=== PATIENT | male | born 1955 | race African-American/Black ===

== ENCOUNTER 2016-08-27 13:07 | Emergency (ER) | payer OTHER ==
[2016-08-27 15:19] VITALS: BP 144/99
== END 2016-08-27 15:19 | disposition home or self-care (01) ==
LOC: ED 13:07
DX: M54.12 Radiculopathy, cervical region (principal); M25.511 Pain in right shoulder; M25.512 Pain in left shoulder

== ENCOUNTER 2016-09-02 18:53 | Emergency (ER) | payer OTHER ==
[2016-09-02 21:33] VITALS: BP 148/88
== END 2016-09-02 21:33 | disposition home or self-care (01) ==
LOC: ED 18:53
DX: M54.12 Radiculopathy, cervical region (principal); E78.00 Pure hypercholesterolemia, unspecified; G43.909 Migraine, unspecified, not intractable, without status migrainosus; Z79.899 Other long term (current) drug therapy
CPT/HCPCS: J1885

== ENCOUNTER 2016-09-07 11:12 | Emergency (ER) | payer OTHER ==
[2016-09-07 12:34] LABS: BASOPHIL % 0.8 % (0-2); PLATELET COUNT 215 x10^3mcL (130-400); RED CELL DISTRIBUTION WIDTH 13.9 % (11.5-14.5)
[2016-09-07 12:38] LABS: CALCIUM 8.7 mg/dL (8.5-10.1); CARBON DIOXIDE 27.5 mmol/L (21-32); CHLORIDE SERUM 105 mmol/L (98-107); CREATININE SERUM 1.1 mg/dL (0.7-1.3); GFR1 > 60 mL/min; GLUCOSE SERUM 101 mg/dL (74-106); POTASSIUM SERUM 4.4 mmol/L (3.5-5.1); SODIUM SERUM 138 mmol/L (136-145)
[2016-09-07 12:42] LABS: ALBUMIN 3.7 g/dL (3.4-5.0); ALKALINE PHOSPHATASE 60 U/L (46-116); ALT/SGPT 44 U/L (16-63); AST/SGOT 26 U/L (15-37); BILIRUBIN TOTAL 0.32 mg/dL (0.20-1.00); CHOLESTEROL 152 mg/dL (<200); CHOLESTEROL/HDL RATIO 2.9; HDL CHOLESTEROL 52 mg/dL (40-60); LIPASE 99 IU/L (73-393); TOTAL PROTEIN, SERUM 6.8 g/dL (6.4-8.2); TRIGLYCERIDES 159 mg/dL (<150)
[2016-09-07 12:48] LABS: FREE T4 1.08 ng/dL (0.76-1.46); FREE THYROXINE INDEX 3.4 ug/dL (1.4-4.5); T4(THYROXINE) 8.6 ug/dL (4.7-13.3)
[2016-09-07 13:01] LABS: T3 TOTAL 0.98 ng/mL
[2016-09-07 13:23] LABS: microscopic required? NO
[2016-09-07 13:39] LABS: UA SPECIFIC GRAVITY 1.025 (1.005-1.035); urine erythrocyte NEGATIVE (NEGATIVE)
[2016-09-07 15:28] VITALS: BP 148/85
== END 2016-09-07 15:28 | disposition home or self-care (01) ==
LOC: ED 11:12
PROVIDERS: Specialist
DX: R10.31 Right lower quadrant pain (principal); R10.32 Left lower quadrant pain; E78.00 Pure hypercholesterolemia, unspecified
CPT/HCPCS: 83880; 84439; J1885; J7030

== ENCOUNTER 2017-01-15 19:49 | Emergency (ER) | payer OTHER ==
[2017-01-15 22:17] VITALS: BP 143/79
== END 2017-01-15 22:17 | disposition home or self-care (01) ==
LOC: ED 19:49
DX: M25.561 Pain in right knee (principal); R03.0 Elevated blood-pressure reading, without diagnosis of hypertension; E78.5 Hyperlipidemia, unspecified; G43.909 Migraine, unspecified, not intractable, without status migrainosus
CPT/HCPCS: J1885

== ENCOUNTER 2017-02-10 10:45 | Emergency (ER) | payer OTHER ==
[~2017-02-10] VITALS: Ht 188 cm; Wt 103.0 kg
[2017-02-10 10:50] VITALS: BP 151/89
== END 2017-02-10 13:11 | disposition home or self-care (01) ==
LOC: ED 10:45
DX: G89.29 Other chronic pain (principal); M25.561 Pain in right knee; H61.23 Impacted cerumen, bilateral; F32.9 Major depressive disorder, single episode, unspecified; E78.00 Pure hypercholesterolemia, unspecified; G43.909 Migraine, unspecified, not intractable, without status migrainosus; M17.0 Bilateral primary osteoarthritis of knee

== ENCOUNTER 2017-03-18 21:47 | Emergency (ER) | payer OTHER ==
[2017-03-19 00:03] VITALS: BP 148/104
== END 2017-03-19 00:03 | disposition home or self-care (01) ==
LOC: ED 21:47
DX: Z76.0 Encounter for issue of repeat prescription (principal); E78.5 Hyperlipidemia, unspecified

== ENCOUNTER 2017-03-29 17:03 | Emergency (ER) | payer OTHER ==
[~2017-03-29] VITALS: Ht 188 cm; Wt 104.3 kg
[2017-03-29 20:17] VITALS: BP 139/78
== END 2017-03-29 20:18 | disposition home or self-care (01) ==
LOC: ED 17:03
DX: G89.29 Other chronic pain (principal); M25.561 Pain in right knee; E78.5 Hyperlipidemia, unspecified; R03.0 Elevated blood-pressure reading, without diagnosis of hypertension
CPT/HCPCS: J1885

== ENCOUNTER 2017-04-16 14:31 | Emergency (ER) | payer OTHER ==
[2017-04-16 16:59] VITALS: BP 155/74
== END 2017-04-16 16:30 | disposition home or self-care (01) ==
LOC: ED 14:31
DX: Z76.0 Encounter for issue of repeat prescription (principal); E78.00 Pure hypercholesterolemia, unspecified; G43.909 Migraine, unspecified, not intractable, without status migrainosus

== ENCOUNTER 2017-04-26 19:34 | Emergency (ER) | payer OTHER ==
[2017-04-26 23:27] VITALS: BP 119/80
== END 2017-04-26 23:25 | disposition home or self-care (01) ==
LOC: ED 19:34
DX: Z76.0 Encounter for issue of repeat prescription (principal); R10.13 Epigastric pain; F32.9 Major depressive disorder, single episode, unspecified; E78.00 Pure hypercholesterolemia, unspecified; G43.909 Migraine, unspecified, not intractable, without status migrainosus

== ENCOUNTER 2017-05-01 17:45 | Emergency (ER) | payer OTHER ==
[~2017-05-01] VITALS: Ht 188 cm; Wt 102.0 kg
[2017-05-01 17:49] VITALS: BP 149/63
== END 2017-05-01 18:30 | disposition home or self-care (01) ==
LOC: ED 17:45
DX: R21 Rash and other nonspecific skin eruption (principal)

== ENCOUNTER 2017-05-23 22:35 | Emergency (ER) | payer OTHER ==
[~2017-05-23] VITALS: Ht 188 cm; Wt 105.7 kg
[2017-05-23 22:45] VITALS: Ht 188 cm; Wt 105.7 kg
[2017-05-24 00:24] VITALS: BP 146/87
== END 2017-05-23 23:50 | disposition home or self-care (01) ==
LOC: ED 22:35
DX: Z76.0 Encounter for issue of repeat prescription (principal); E78.5 Hyperlipidemia, unspecified; G43.909 Migraine, unspecified, not intractable, without status migrainosus

== ENCOUNTER 2017-08-28 21:13 | Emergency (ER) | payer OTHER ==
[~2017-08-28] VITALS: Ht 182.9 cm; Wt 104.3 kg
[2017-08-28 21:19] VITALS: Ht 182.9 cm; Wt 104.3 kg
[2017-08-28 21:48] VITALS: BP 159/100
== END 2017-08-28 21:48 | disposition home or self-care (01) ==
LOC: ED 21:13
DX: S16.1XXA Strain of muscle, fascia and tendon at neck level, initial encounter (principal); M54.12 Radiculopathy, cervical region; E78.00 Pure hypercholesterolemia, unspecified; F32.9 Major depressive disorder, single episode, unspecified; X58.XXXA Exposure to other specified factors, initial encounter; Y93.89 Activity, other specified; Y92.89 Other specified places as the place of occurrence of the external cause; Y99.8 Other external cause status

== ENCOUNTER 2017-09-15 20:26 | Emergency (ER) | payer OTHER ==
[~2017-09-15] VITALS: Ht 188 cm; Wt 103.0 kg
[2017-09-15 20:33] VITALS: BP 142/73; Ht 188 cm; Wt 103.0 kg
== END 2017-09-15 22:09 | disposition left against medical advice (07) ==
LOC: ED 20:26
DX: Z53.21 Procedure and treatment not carried out due to patient leaving prior to being seen by health care provider (principal)

== ENCOUNTER 2017-09-27 08:00 | Emergency (ER) | payer OTHER ==
[~2017-09-27] VITALS: Ht 188 cm; Wt 102.5 kg
[2017-09-27 08:06] VITALS: Ht 188 cm; Wt 102.5 kg
[2017-09-27] MEDS ORDERED: ROBAXIN500 MG PO (08:13)
[2017-09-27 09:04] VITALS: BP 141/80
== END 2017-09-27 09:04 | disposition home or self-care (01) ==
LOC: ED 08:00
DX: M54.2 Cervicalgia (principal)

== ENCOUNTER 2017-10-24 20:21 | Emergency (ER) | payer OTHER ==
[~2017-10-24] VITALS: Ht 188 cm; Wt 104.3 kg
[~2017-10-24 20:21] MED LIST: ROBAXIN500 MG PO
[2017-10-24 20:57] VITALS: Ht 188 cm; Wt 104.3 kg
[2017-10-24 21:50] VITALS: BP 137/78
== END 2017-10-24 21:50 | disposition home or self-care (01) ==
LOC: ED 20:21
DX: S16.1XXA Strain of muscle, fascia and tendon at neck level, initial encounter (principal); Z76.0 Encounter for issue of repeat prescription; X58.XXXA Exposure to other specified factors, initial encounter; Y93.89 Activity, other specified; Y92.89 Other specified places as the place of occurrence of the external cause; Y99.8 Other external cause status

== ENCOUNTER 2017-11-14 18:41 | Emergency (ER) | payer OTHER ==
[~2017-11-14] VITALS: Ht 188 cm; Wt 103.0 kg
[2017-11-14 18:47] VITALS: Ht 188 cm; Wt 103.0 kg
[2017-11-14 19:57] VITALS: BP 131/85
== END 2017-11-14 19:57 | disposition home or self-care (01) ==
LOC: ED 18:41
DX: S16.1XXA Strain of muscle, fascia and tendon at neck level, initial encounter (principal); G89.29 Other chronic pain; F32.9 Major depressive disorder, single episode, unspecified; E78.00 Pure hypercholesterolemia, unspecified; G43.909 Migraine, unspecified, not intractable, without status migrainosus; X50.0XXA Overexertion from strenuous movement or load, initial encounter; Y93.89 Activity, other specified; Y92.89 Other specified places as the place of occurrence of the external cause; Y99.8 Other external cause status
CPT/HCPCS: J1885

== ENCOUNTER 2017-11-22 18:16 | Emergency (ER) | payer OTHER ==
[~2017-11-22] VITALS: Ht 185.4 cm; Wt 103.6 kg
[2017-11-22 18:25] VITALS: BP 134/81; Ht 185.4 cm; Wt 103.6 kg
== END 2017-11-22 18:56 | disposition home or self-care (01) ==
LOC: ED 18:16
DX: G89.29 Other chronic pain (principal); M25.512 Pain in left shoulder; G43.909 Migraine, unspecified, not intractable, without status migrainosus; E78.00 Pure hypercholesterolemia, unspecified

== ENCOUNTER 2017-12-28 17:30 | Emergency (ER) | payer OTHER ==
[~2017-12-28] VITALS: Ht 185.4 cm; Wt 104.3 kg
[2017-12-28 17:35] VITALS: Ht 185.4 cm; Wt 104.3 kg
[2017-12-28 18:11] VITALS: BP 137/75
== END 2017-12-28 18:11 | disposition home or self-care (01) ==
LOC: ED 17:30
DX: A60.01 Herpesviral infection of penis (principal); E78.00 Pure hypercholesterolemia, unspecified

== ENCOUNTER 2018-03-08 18:19 | Emergency (ER) | payer OTHER ==
[~2018-03-08] VITALS: Ht 185.4 cm; Wt 103.0 kg
[2018-03-08 18:24] VITALS: Ht 185.4 cm; Wt 103.0 kg
[2018-03-08 18:53] VITALS: BP 143/75
== END 2018-03-08 18:53 | disposition home or self-care (01) ==
LOC: ED 18:19
DX: M54.12 Radiculopathy, cervical region (principal); F41.9 Anxiety disorder, unspecified; E78.00 Pure hypercholesterolemia, unspecified; G43.909 Migraine, unspecified, not intractable, without status migrainosus; B00.9 Herpesviral infection, unspecified

== ENCOUNTER 2018-03-21 20:26 | Emergency (ER) | payer OTHER ==
[2018-03-21 20:33] VITALS: BP 128/75; Ht 190.5 cm
== END 2018-03-21 20:57 | disposition home or self-care (01) ==
LOC: ED 20:26
DX: Z76.0 Encounter for issue of repeat prescription (principal); F32.9 Major depressive disorder, single episode, unspecified; G43.909 Migraine, unspecified, not intractable, without status migrainosus; Z86.19 Personal history of other infectious and parasitic diseases

== ENCOUNTER 2018-04-21 19:38 | Emergency (ER) | payer OTHER ==
[~2018-04-21] VITALS: Ht 185.4 cm; Wt 107.1 kg
[2018-04-21 20:08] VITALS: Ht 185.4 cm; Wt 107.1 kg
[2018-04-21 21:27] VITALS: BP 141/77
== END 2018-04-21 21:27 | disposition home or self-care (01) ==
LOC: ED 19:38
DX: G47.00 Insomnia, unspecified (principal); Z76.0 Encounter for issue of repeat prescription; F32.9 Major depressive disorder, single episode, unspecified; E78.00 Pure hypercholesterolemia, unspecified; G43.909 Migraine, unspecified, not intractable, without status migrainosus

== ENCOUNTER 2018-07-06 18:42 | Emergency (ER) | payer OTHER ==
[~2018-07-06] VITALS: Ht 185.4 cm; Wt 103.4 kg
[2018-07-06 18:55] VITALS: Ht 185.4 cm; Wt 103.4 kg
[2018-07-06 21:08] VITALS: BP 115/76
== END 2018-07-06 21:08 | disposition home or self-care (01) ==
LOC: ED 18:42
DX: M79.661 Pain in right lower leg (principal); M79.662 Pain in left lower leg; E78.5 Hyperlipidemia, unspecified; G43.909 Migraine, unspecified, not intractable, without status migrainosus

== ENCOUNTER 2018-07-15 14:07 | Emergency (ER) | payer OTHER ==
[~2018-07-15] VITALS: Ht 185.4 cm; Wt 106.6 kg
[2018-07-15 14:11] VITALS: Ht 185.4 cm; Wt 106.6 kg
[2018-07-15 16:15] VITALS: BP 151/77
== END 2018-07-15 16:15 | disposition home or self-care (01) ==
LOC: ED 14:07
DX: S16.1XXA Strain of muscle, fascia and tendon at neck level, initial encounter (principal); M79.652 Pain in left thigh; M79.651 Pain in right thigh; E78.00 Pure hypercholesterolemia, unspecified; F32.9 Major depressive disorder, single episode, unspecified; G43.909 Migraine, unspecified, not intractable, without status migrainosus; X50.0XXA Overexertion from strenuous movement or load, initial encounter; Y93.89 Activity, other specified; Y92.89 Other specified places as the place of occurrence of the external cause; Y99.8 Other external cause status

== ENCOUNTER 2018-07-17 20:38 | Emergency (ER) | payer OTHER ==
[~2018-07-17] VITALS: Ht 182.9 cm; Wt 106.6 kg
[2018-07-17 21:04] VITALS: BP 147/83; Ht 182.9 cm; Wt 106.6 kg
== END 2018-07-17 21:24 | disposition left against medical advice (07) ==
LOC: ED 20:38
DX: Z53.21 Procedure and treatment not carried out due to patient leaving prior to being seen by health care provider (principal)

== ENCOUNTER 2018-10-01 23:00 | Emergency (ER) | payer OTHER ==
[~2018-10-01] VITALS: Ht 185.4 cm; Wt 105.7 kg
[2018-10-01 23:07] VITALS: Ht 185.4 cm; Wt 105.7 kg
[2018-10-02 01:08] VITALS: BP 168/89
== END 2018-10-02 01:08 | disposition home or self-care (01) ==
LOC: ED 23:00
DX: M79.605 Pain in left leg (principal); M79.604 Pain in right leg; I10 Essential (primary) hypertension; E78.00 Pure hypercholesterolemia, unspecified

== ENCOUNTER 2018-10-02 03:17 | Emergency (ER) | payer OTHER ==
[~2018-10-02] VITALS: Ht 188 cm; Wt 104.3 kg
[2018-10-02 03:31] VITALS: BP 158/95
== END 2018-10-02 03:31 | disposition home or self-care (01) ==
LOC: ED 03:17
DX: M62.838 Other muscle spasm (principal); I10 Essential (primary) hypertension; F32.9 Major depressive disorder, single episode, unspecified; E78.00 Pure hypercholesterolemia, unspecified; G43.909 Migraine, unspecified, not intractable, without status migrainosus

== ENCOUNTER 2018-10-27 23:57 | Emergency (ER) | payer OTHER ==
[~2018-10-27] VITALS: Ht 188 cm; Wt 105.2 kg
[2018-10-28 00:05] VITALS: Ht 188 cm; Wt 105.2 kg
[2018-10-28 01:26] VITALS: BP 122/80
== END 2018-10-28 01:26 | disposition home or self-care (01) ==
LOC: ED 23:57
DX: G89.29 Other chronic pain (principal); M79.661 Pain in right lower leg; M79.662 Pain in left lower leg

== ENCOUNTER 2019-01-01 18:00 | Inpatient (IN) | payer OTHER, MEDICARE ==
[~2019-01-01] VITALS: Ht 185.4 cm; Wt 103.4 kg
[2019-01-01 18:07] VITALS: Ht 185.4 cm; Wt 103.4 kg
--- NOTE | 2019-01-01 18:13 | NUR ---
PATIENT SENT TO LOBBY. STEADY GAIT NOTED. VS STABLE
[2019-01-01 20:21] LABS: BASOPHIL % 1.1 % (0-2); PLATELET COUNT 230 x10^3mcL (130-400); RED CELL DISTRIBUTION WIDTH 13.6 % (11.5-14.5)
[2019-01-01 20:27] LABS: CALCIUM 9.3 mg/dL (8.5-10.1); CARBON DIOXIDE 26.8 mmol/L (21-32); CHLORIDE SERUM 102 mmol/L (98-107); CREATININE SERUM 1.2 mg/dL (0.7-1.3); GFR1 > 60 mL/min; GLUCOSE SERUM 97 mg/dL (74-106); SODIUM SERUM 139 mmol/L (136-145)
[2019-01-01 20:32] LABS: ALBUMIN 4.1 g/dL (3.4-5.0); ALKALINE PHOSPHATASE 60 U/L (46-116); ALT/SGPT 35 U/L (16-63); AST/SGOT 23 U/L (15-37); BILIRUBIN TOTAL 0.38 mg/dL (0.20-1.00); TOTAL PROTEIN, SERUM 7.4 g/dL (6.4-8.2)
--- NOTE | 2019-01-01 21:01 | NUR ---
PATIENT SEEN WITH COMPLAINT OF UPPER CHEST DISCOMFORT X 3 DAYS SORENESS. ALSO REPORTS COLDNESS ON HIS FEET. PATIENT SEEN ANMBLATORY. NO ACUTE DISTRESS. PATIENT WENT TO THE BATHROOM URINE COLLECTED. PATIENT WAS SEEN BY .
--- NOTE | 2019-01-01 21:16 | NUR ---
PT MEDICATED PER ORDER. PT VERBALIZED UNDERSTANDING OF MEDICATION TEACHING. SEE EMAR FOR DETAILS.
--- NOTE | 2019-01-01 21:28 | NUR ---
PT IS UNABLE TO RECALL MEDICATION LIST.
[2019-01-01 22:00] LABS: microscopic required? NO
--- NOTE | 2019-01-01 22:01 | NUR ---
CALLED TO PT ROOM BY MEDICAL STUDENT STATING PT NEEDED TO USE RESTROOM URGENTLY. UPON ENTERING ROOM, PT STATED HE WAS ALREADY URINATING, UPON WHICH I SAW THAT THE SHEETS WERE GETTING WET. ASKED PT IF HE WOULD LIKE A URINAL TO FINISH URINATING INTO AND PT REPLIED THAT HE CAN'T STOP TO DO THAT. ONCE PT FINISHED URINATING PT AMBULATED TO RESTROOM TO CLEAN SELF UP AND CHANGE INTO CLEAN GOWN. MICA CLEANED AND CHANGED TO CLEAN SHEETS FOR PT TRANSPORT TO TELE UNIT.
[2019-01-01 22:02] LABS: CHOLESTEROL/HDL RATIO 3.4; MAGNESIUM 2.2 mg/dL (1.8-2.4); PHOSPHOROUS 3.8 mg/dL (2.5-4.9)
[2019-01-01 22:05] LABS: T3 TOTAL 0.89 ng/mL
[2019-01-01 22:06] LABS: FREE T4 0.96 ng/dL (0.76-1.46); FREE THYROXINE INDEX 2.9 ug/dL (1.4-4.5); T4(THYROXINE) 8.2 ug/dL (4.7-13.3)
[2019-01-01 22:06] LABS: urine erythrocyte NEGATIVE (NEGATIVE)
[2019-01-01 22:16] LABS: AMPHETAMINE QUAL UR NONE DETECTED (See below)
--- NOTE | 2019-01-01 22:28 | NUR ---
PT TAKEN TO TELE FLOOR BY NURSE AND EMT. NO S/S OF DISTRESS. RESP E/U. PT CONNECTED TO MONITOR. DURING TRANSFER. RN AT BEDSIDE TO ASSUME CARE OF PT.
[2019-01-01 22:36] VITALS: BP 136/87
--- NOTE | 2019-01-01 22:38 | NUR ---
RECEIVED PT FROM ED VIA TANO. ORIENTED PT TO ROOM AND SURROUNDINGS. IV NOTED TO LFA PATENT AND INTACT. TELE 15 PLACED ON PT READING SBR. INSTRUCTED PT ON THE USE OF CALL LIGHT FOR ASSISTANCE. ENDORSED PT TO PRIMARY NURSE MYKE
--- NOTE | 2019-01-01 23:06 | NUR ---
NEW ADM. FROM ED. RESTING IN BED. A/O X4. DENIES HEADACHE/DIZZINESS. RESP. EVEN AND UNLABORED. LUNG SOUNDS CLEAR BILAT. ON ROOM AIR,SAT 97%, DENIES SOB, NO ACUTE DISTRESS NOTED. AFEBRILE AND VITAL SIGNS STABLE.PLACED ON TELE #15, MONITOR SHOWS SR. DENIES CHEST PAIN OR ANY DISCOMFORT AT THIS TIME. ABD. SOFT, NON DISTENDED, BS ACTIVE, NO N/V NOTED. SKIN WARM AND DRY TO TOUCH, INTACT, TRACE EDEMA TO BLE. ALL PULSES PALPABLE. AMBULATORY. STARTED ON IVF, NS AT 100ML/HR, INFUSING VIA LFA, SITE CLEAR. KEPT COMFORTABLE. CALL LIGHT WITHIN REACH. WILL CONTINUE TO MONITOR.
--- NOTE | 2019-01-02 00:42 | NUR ---
IV SITE LEAKING, DISCONT. NEW IVF SITE RESTARED ON RFA WITH #20G ANGO, IVF INFUSING WELL . WILL CONTINUE TO MONITOR.
--- NOTE | 2019-01-02 03:54 | NUR ---
SR/SB ON THE TELE, DENIES CP OR ANY DISCOMFORT AT THIS TIME. WILL CONTINUE TO MONITOR.
[2019-01-02 04:58] VITALS: BP 125/74
--- NOTE | 2019-01-02 06:11 | NUR ---
SLEPT WELL. NO COMPLAINTS NOTED. SR/SB ON THE MONITOR. DENIES CP OR ANY DISCOMFORT AT THIS TIME.AFEBRILE AND VITAL SIGNS STABLE. RESP. EVEN AND UNLABORED. NO ACUTE DISTRESS DISTRESS NOTED. IVF INTACT AND INFUSING WELL, SITE CLEAR. CALL LIGHT WITHIN REACH. WILL CONTINUE TO MONITOR.
[2019-01-02 06:55] LABS: BASOPHIL % 0.7 % (0-2); PLATELET COUNT 205 x10^3mcL (130-400); RED CELL DISTRIBUTION WIDTH 13.6 % (11.5-14.5)
--- NOTE | 2019-01-02 07:32 | NUR ---
PT ENDORSE TO ME THIS MORNING, SITTING UP IN CHAIR, AA/O X4, BREATHING EVEN AND UNLABORED ON RA, NO ACUTE RESP DISTRESS OR SOB NOTED. TELE 15 NOTED, SR. BOWEL SOUNDS ACTIVE IN ALL FOUR QUADS. VOIDS FREELY. AMB. IV TO THE RFA INTACT AND PATENT INFUSING AT 100ML/HR, NO REDNESS OR SWELLING NOTED. CALL LIGHT IN REACH. WILL CONTINUE TO MONITOR.
[2019-01-02 08:03] LABS: CARBON DIOXIDE 26.2 mmol/L (21-32); CHLORIDE SERUM 106 mmol/L (98-107); CREATININE SERUM 1.1 mg/dL (0.7-1.3); GFR1 > 60 mL/min; GLUCOSE SERUM 93 mg/dL (74-106); PHOSPHOROUS 3.4 mg/dL (2.5-4.9); POTASSIUM SERUM 4.6 mmol/L (3.5-5.1); SODIUM SERUM 142 mmol/L (136-145)
[2019-01-02 08:06] VITALS: BP 140/83
--- NOTE | 2019-01-02 09:29 | NUR ---
ECHO COMPLETE. PT DENIES ANY CP OR PRESSUE AT THIS TIME. WILL CONTINUE TO MONITOR.
[2019-01-02 11:46] VITALS: BP 137/87
--- NOTE | 2019-01-02 12:21 | NUR ---
PT C/O HORNE, MEDICATED PER EMAR.
--- NOTE | 2019-01-02 14:10 | NUR ---
PT STATED WANTED TO LEAVE AMA, DR. SANDERS AT BEDSIDE EXPLAINING RISK AND BENEFITS OF LEAVING AMA, PT REFUSE TO WAIT FOR DR. OLIVER TO SEE HIM. PT SIGNED AMA FORM. IAN CAPPS WALKED PT DOWN TO FRONT OF HOSPITAL.
--- NOTE | 2019-01-02 14:10 | NUR ---
REMOVED IV TO THE RFA INTACT AND PATENT, CATHETER TIP INTACT, NO REDNESS OR SWELLING NOTED. RETURNED TELE 15 BACK TO TELE. PT LEFT AMA.
== END 2019-01-02 14:15 | disposition home or self-care (01) | DRG 243 ==
LOC: ED 18:00 → DU 21:20
PROVIDERS: ADMIT General Practice
DX: K21.9 Gastro-esophageal reflux disease without esophagitis (principal); E78.5 Hyperlipidemia, unspecified; M94.0 Chondrocostal junction syndrome [Tietze]; N32.81 Overactive bladder; R32 Unspecified urinary incontinence; I10 Essential (primary) hypertension; I25.2 Old myocardial infarction
CPT/HCPCS: 83880; 84439; G0378; J7030; Q0092

== ENCOUNTER 2019-02-17 19:09 | Emergency (ER) | payer MEDICARE, OTHER ==
[~2019-02-17] VITALS: Ht 185.4 cm; Wt 107.0 kg
[2019-02-17 20:44] VITALS: BP 131/68
== END 2019-02-17 20:44 | disposition home or self-care (01) ==
LOC: ED 19:09
DX: R51 Headache (principal); I10 Essential (primary) hypertension; E78.00 Pure hypercholesterolemia, unspecified; G43.909 Migraine, unspecified, not intractable, without status migrainosus; F32.9 Major depressive disorder, single episode, unspecified; Z76.0 Encounter for issue of repeat prescription

== ENCOUNTER 2019-03-06 18:21 | Emergency (ER) | payer MEDICARE, OTHER ==
[~2019-03-06] VITALS: Ht 188 cm; Wt 104.3 kg
[2019-03-06 19:21] VITALS: BP 151/92
== END 2019-03-06 19:21 | disposition home or self-care (01) ==
LOC: ED 18:21
DX: G47.00 Insomnia, unspecified (principal); G44.001 Cluster headache syndrome, unspecified, intractable; I10 Essential (primary) hypertension; E78.00 Pure hypercholesterolemia, unspecified; F32.9 Major depressive disorder, single episode, unspecified

== ENCOUNTER 2019-03-10 19:38 | Emergency (ER) | payer MEDICARE, OTHER ==
[~2019-03-10] VITALS: Ht 180.3 cm; Wt 106.1 kg
[2019-03-10 19:54] VITALS: Ht 180.3 cm; Wt 106.1 kg
[2019-03-10 20:56] VITALS: BP 126/83
== END 2019-03-10 20:30 | disposition home or self-care (01) ==
LOC: ED 19:38
DX: R51 Headache (principal); I10 Essential (primary) hypertension; E78.00 Pure hypercholesterolemia, unspecified; F32.9 Major depressive disorder, single episode, unspecified; G43.909 Migraine, unspecified, not intractable, without status migrainosus; Z76.0 Encounter for issue of repeat prescription

== ENCOUNTER 2019-07-02 22:46 | Emergency (ER) | payer MEDICARE, OTHER ==
[~2019-07-02] VITALS: Ht 188 cm; Wt 105.7 kg
[2019-07-02 22:59] VITALS: BP 129/63; Ht 188 cm; Wt 105.7 kg
== END 2019-07-02 23:42 | disposition left against medical advice (07) ==
LOC: ED 22:46
DX: Z53.21 Procedure and treatment not carried out due to patient leaving prior to being seen by health care provider (principal)